=== PATIENT | female | born 1955 | race Caucasian/White ===

== ENCOUNTER 2019-09-20 00:54 | Emergency (ER) | payer MEDICARE, OTHER ==
[~2019-09-20] VITALS: Ht 160 cm; Wt 93.6 kg
--- NOTE | 2019-09-20 01:12 | ED Respiratory ---
General Chief Complaint: Respiratory Problems Stated Complaint: TROUBLE BREATHING Source: patient Exam Limitations: no limitations History of Present Illness Date Seen by Provider: Sep 20, 2019 Time Seen by Provider: 01:07 Initial Comments 64-year-old female presents with a feeling that she's having a hard time catching her breath. Patient reports that the symptoms started about 12:30. Patient states that she was just sitting there when it happened. Patient states that she has similar symptoms about 2 days ago. Patient denies any cough, fever, chills. Patient does report she has a history of anxiety and in the past was on anxiety and depression medication but quit due to side effects. She cannot remember what that medication is name was. She was also given a prescription in the past for hydroxyzine. She states she's had used it one time. She was unsure if this was an anxiety reaction so she has not taken at this time. Patient denies any other systemic complaints. Patient does report some increased stress with her daughter recently being diagnosed with stage III cancer Allergies and Home Medications Allergies Coded Allergies: No Known Drug Allergies (Unverified , 09/20/19) Patient Home Medication List Home Medication List Reviewed: Yes Review of Systems Review of Systems Constitutional: No chills, No fever Respiratory: see HPI; No cough Cardiovascular: No chest pain, No palpitations Gastrointestinal: no symptoms reported Genitourinary: no symptoms reported Musculoskeletal: no symptoms reported Skin: no symptoms reported Psychiatric/Neurological: Anxiety Past Gzconbh-Dxzvqk-Czjmnq Hx Patient Social History Recent Foreign Travel: No Contact w/Someone Who Travel: No Physical Exam Vital Signs - First Documented 09/20/19 01:09 Temp 36.2 Pulse 82 Resp 18 B/P (MAP) 185/98 (127) Pulse Ox 98 O2 Delivery Room Air Capillary Refill : Height: '" Weight: lbs. oz. kg; BMI Method: General Appearance: WD/WN, no apparent distress HEENT: PERRL/EOMI Neck: supple Respiratory: lungs clear, normal breath sounds, no respiratory distress, no accessory muscle use Cardiovascular: normal peripheral pulses, regular rate, rhythm Gastrointestinal: non tender, soft Extremities: normal range of motion, non-tender Neurologic/Psychiatric: ell tutor II-XII nml as tested, no motor/sensory deficits, alert, oriented x 3, other (mildly anxious and stressed) Skin: normal color, warm/dry Progress/Results/Core Measures Suspected Sepsis SIRS Temperature: Pulse: Respiratory Rate: Laboratory Tests 09/20/19 01:20: White Blood Count 9.8 Blood Pressure / Mean: Laboratory Tests 09/20/19 01:20: Creatinine 0.79, Platelet Count 345, Total Bilirubin 0.3 Results/Orders Lab Results Laboratory Tests Test 09/20/19 01:20 Range/Units White Blood Count 9.8 4.3-11.0 10^3/uL Red Blood Count 5.04 4.35-5.85 10^6/uL Hemoglobin 15.2 11.5-16.0 G/DL Hematocrit 44 35-52 % Mean Corpuscular Volume 88 80-99 FL Mean Corpuscular Hemoglobin 30 25-34 PG Mean Corpuscular Hemoglobin Concent 34 32-36 G/DL Red Cell Distribution Width 12.8 10.0-14.5 % Platelet Count 345 130-400 10^3/uL Mean Platelet Volume 11.2 H 7.4-10.4 FL Sodium Level 138 135-145 MMOL/L Potassium Level 3.5 L 3.6-5.0 MMOL/L Chloride Level 101 98-107 MMOL/L Carbon Dioxide Level 24 21-32 MMOL/L Anion Gap 13 5-14 MMOL/L Blood Urea Nitrogen 16 7-18 MG/DL Creatinine 0.79 0.60-1.30 MG/DL Estimat Glomerular Filtration Rate > 60 BUN/Creatinine Ratio 20 Glucose Level 147 H 70-105 MG/DL Calcium Level 9.2 8.5-10.1 MG/DL Corrected Calcium 9.1 8.5-10.1 MG/DL Total Bilirubin 0.3 0.1-1.0 MG/DL Aspartate Amino Transf (AST/SGOT) 15 5-34 U/L Alanine Aminotransferase (ALT/SGPT) 14 0-55 U/L Alkaline Phosphatase 86 40-136 U/L Troponin I < 0.30 <0.30 NG/ML Pro-B-Type Natriuretic Peptide 170.1 H <75.0 PG/ML Total Protein 7.4 6.4-8.2 GM/DL Albumin 4.1 3.2-4.5 GM/DL My Orders Orders - NJ,NICOLE L DO Cbc No Diff (09/20/19 01:13) Comprehensive Metabolic Panel (09/20/19 01:13) Probnp Fs (09/20/19 01:13) Troponin I Fs (09/20/19 01:13) Ekg Tracing (09/20/19 01:13) Monitor-Rhythm Ecg Trace Only (09/20/19 01:13) Chest Pa/Lat (2 View) (09/20/19 01:13) Vital Signs/I&O 09/20/19 01:09 Temp 36.2 Pulse 82 Resp 18 B/P (MAP) 185/98 (127) Pulse Ox 98 O2 Delivery Room Air Capillary Refill : Progress Note : Time: 02:26 Progress Note Patient's EKG labs including troponin were all negative. Patient's exam, and past history are consistent with a stress reaction/anxiety. She has hydroxyzine she can currently take. I did offer her an anti-anxiolytic/antidepressant. She reports again with the side effects that she would prefer to visit with her primary care provider and they can decide on that. After then I recommend she try her hydroxyzine up to 3 times a day as needed for anxiety. She is stable and will be discharged home. ECG Initial ECG Impression Date: Sep 20, 2019 Initial ECG Impression Time: 01:16 Initial ECG Rhythm: Normal Sinus Initial ECG Intervals: Normal Initial ECG Impression: Nonspecific Changes Comment NSR no acute changes, Departure Impression Primary Impression: Acute stress reaction Additional Impression: Anxiety with depression Disposition: 01 HOME, SELF-CARE Condition: Stable Departure-Patient Inst. Referrals: MARNI HATCH MD (PCP/Family) Primary Care Physician Patient Instructions: Anxiety, Adult (DC), Tips to Help You [place] in Uncertain Times, Tips on Positive Thinking, Stress Add. Discharge Instructions: Follow-up with your primary care provider for further medication management All discharge instructions reviewed with patient and/or family. Voiced understanding. NICOLE NJ DO Sep 20, 2019 01:11
[2019-09-20 01:50] LABS: HEMOGLOBIN 15.2 G/DL (11.5-16.0); WHITE BLOOD COUNT 9.8 10^3/uL (4.3-11.0)
[2019-09-20 01:51] LABS: MEAN PLATELET VOLUME 11.2 FL (7.4-10.4); RED CELL DISTRIBUTION WIDTH 12.8 % (10.0-14.5)
--- NOTE | 2019-09-20 02:12 | NUR ---
pt states she is feeling better with anxiety, does not want to wear monitor anymore.
[2019-09-20 02:20] LABS: CARBON DIOXIDE 24 MMOL/L (21-32); CHLORIDE 101 MMOL/L (98-107); POTASSIUM 3.5 MMOL/L (3.6-5.0); SODIUM 138 MMOL/L (135-145)
[2019-09-20 02:21] LABS: ALANINE AMINOTRANSFERASE 14 U/L (0-55); ALBUMIN 4.1 GM/DL (3.2-4.5); ALKALINE PHOSPHATASE 86 U/L (40-136); BILIRUBIN,TOTAL 0.3 MG/DL (0.1-1.0); BUN/CREATININE RATIO 20; CALCIUM 9.2 MG/DL (8.5-10.1); CREATININE SERUM 0.79 MG/DL (0.60-1.30); GFR ESTIMATED > 60; GLUCOSE 147 MG/DL (70-105); TOTAL PROTEIN 7.4 GM/DL (6.4-8.2)
[2019-09-20 02:30] VITALS: BP 168/87
--- NOTE | 2019-09-20 06:32 | Diagnostic Imaging Report ---
Indication: Shortness of breath PA and lateral chest Heart size and pulmonary vascularity are normal. Lungs are clear. There are no effusions or pneumothoraces. IMPRESSION: Negative chest Dictated by: Dictated on workstation # [id number]
== END 2019-09-20 02:30 | disposition home or self-care (01) ==
LOC: EDUNIT# 00:54 → ER FS 00:58
DX: F43.0 Acute stress reaction (principal); F41.8 Other specified anxiety disorders
CPT/HCPCS: 36415; 71046; 80053; 83880; 84484; 85027; 93005; 93041

== ENCOUNTER 2019-10-03 23:54 | Emergency (ER) | payer MEDICARE ==
[~2019-10-03] VITALS: Ht 162 cm; Wt 100.0 kg
[2019-10-04] MEDS: diphenhydrAMINE 50 MG/ML INJ (BENADRYL) IM STA (00:25)
--- NOTE | 2019-10-04 00:25 | ED General ---
General Chief Complaint: General Problems/Pain Stated Complaint: POSS REACTION TO NEW MEDS Nursing Triage Note: Patient states that her PCP recently prescribed her escitalopram and that tonight around 2129 she took her first dose of the medication. She states she felt shakey and cold and that she became nauseated. She is concerned that she may have been allergic to the medication. Nursing Sepsis Screen: No Definite Risk Source of Information: Patient History of Present Illness Date Seen by Provider: Oct 04, 2019 Time Seen by Provider: 00:01 Initial Comments 64-year-old female presenting with complaints of nausea, abdominal cramping, feeling shaky and cold since taking a dose of Lexapro 20 mg. Tonight was her first dose of taking the medicine for anxiety and depression. She occasionally takes hydroxyzine for anxiety as well. She took her first dose of the Lexapro around 26/02/29 and shortly thereafter started having the symptoms. She was concerned that maybe she was allergic to the medicine and came into the emergency department. She felt like her symptoms were may be gradually improving but still felt too shaky to be able to go to sleep. She never vomited but was still a little nauseated. She denies any feeling of throat swelling or difficulty swallowing. Allergies and Home Medications Allergies Coded Allergies: No Known Drug Allergies (Unverified , 09/20/19) Patient Home Medication List Home Medication List Reviewed: Yes Review of Systems Review of Systems Constitutional: No chills, No fever EENTM: no symptoms reported Respiratory: No cough, No short of breath, No stridor, No wheezing Cardiovascular: no symptoms reported Gastrointestinal: see HPI Genitourinary: no symptoms reported Musculoskeletal: see HPI, joint pain (chronic knee pain and is waiting to have knee surgery) Skin: no symptoms reported Psychiatric/Neurological: See HPI, Anxiety Past Qlljwjp-Jkxbmy-Vnpfrf Hx Past Med/Social Hx: Reviewed Nursing Past Med/Soc Hx Patient Social History Alcohol Use: Denies Use Recreational Drug Use: No Smoking Status: Never a Smoker 2nd Hand Smoke Exposure: No Recent Foreign Travel: No Contact w/Someone Who Travel: No Recent Infectious Disease Expo: No Recent Hopitalizations: No Seasonal Allergies Seasonal Allergies: No Past Medical History Surgeries: Yes Orthopedic Respiratory: No Cardiac: Yes Hypertension Neurological: No Genitourinary: No Gastrointestinal: No Musculoskeletal: No Endocrine: No HEENT: No Cancer: No Psychosocial: Yes Anxiety Integumentary: No Blood Disorders: No Physical Exam Vital Signs Vital Signs - First Documented 10/04/19 00:07 Temp 36.8 Pulse 78 Resp 16 B/P (MAP) 174/82 (112) Pulse Ox 94 O2 Delivery Room Air Capillary Refill : Less Than 3 Seconds Height, Weight, BMI Height: '" Weight: lbs. oz. kg; 38.00 BMI Method: General Appearance: WD/WN, Anxious, Mild Distress, Obese HEENT: PERRL/EOMI, Pharynx Normal Neck: Full Range of Motion, Normal Inspection, Supple Respiratory: Chest Non Tender, Lungs Clear, Normal Breath Sounds, No Accessory Muscle Use, No Respiratory Distress Cardiovascular: Regular Rate, Rhythm, Normal Peripheral Pulses Gastrointestinal: Normal Bowel Sounds, No Pulsatile Mass, Non Tender, Soft Extremity: Normal Capillary Refill, No Pedal Edema Neurologic/Psychiatric: Alert, Oriented x3, No Motor/Sensory Deficits, Normal Mood/Affect Skin: Normal Color, Warm/Dry Progress/Results/Core Measures Suspected Sepsis Recent Fever Within 48 Hours: No Infection Criteria Present: None New/Unexplained Altered Menta: No Sepsis Screen: No Definite Risk SIRS Temperature: Pulse: 78 Respiratory Rate: 16 Blood Pressure 174 /82 Mean: 112 Results/Orders My Orders Orders - ARIAN LINDQUIST MD Diphenhydramine Injection (Benadryl Inje (10/04/19 00:19) Vital Signs/I&O 10/04/19 10/04/19 00:07 00:29 Temp 36.8 Pulse 78 78 Resp 16 16 B/P (MAP) 174/82 (112) 174/82 Pulse Ox 94 94 O2 Delivery Room Air Room Air Capillary Refill : Less Than 3 Seconds Blood Pressure Mean: 112 Progress Note : Progress Note counseled patient that she may not be able to tolerate the Lexapro. Will need to check back with Dr. Domingo about that. for tonight I could try a dose of Benadryl to try and help with her symptoms. Not that she is having an allergic reaction but just to try and help mediate some of her shaky feeling and nausea. unfortunately the half-life of Lexapro can be 27-32 hours and came be increased by 50% in the elderly. Departure Impression Primary Impression: Medication side effect Disposition: 01 HOME, SELF-CARE Condition: Stable Departure-Patient Inst. Decision time for Depature: 00:24 Referrals: MARNI DOMINGO MD (PCP/Family) Primary Care Physician Patient Instructions: Adverse Drug Reactions, Adult (DC), Side Effects From Medicines Add. Discharge Instructions: Stop taking the Escitalopram (Lexapro) and check with Dr. Domingo to see what medicine she would recommend you take instead since you do not seem to be able to tolerate this medicine. All discharge instructions reviewed with patient and/or family. Voiced understanding. ARIAN LINDQUIST MD Oct 04, 2019 00:25
[2019-10-04 00:29] VITALS: BP 174/82
== END 2019-10-04 00:32 | disposition home or self-care (01) ==
LOC: EDUNIT# 23:54 → ER FS 23:55
DX: R11.0 Nausea (principal); T43.225A Adverse effect of selective serotonin reuptake inhibitors, initial encounter; F41.9 Anxiety disorder, unspecified; F32.9 Major depressive disorder, single episode, unspecified
CPT/HCPCS: 99284

== ENCOUNTER 2020-09-07 22:56 | Emergency (ER) | payer MEDICARE ==
[~2020-09-07] VITALS: Ht 160 cm; Wt 91.7 kg
[2020-09-07 23:09] VITALS: BP 121/74
[2020-09-07] MEDS ORDERED: diphenhydrAMINE 25 MG TAB (BENADRYL) PO STA (23:49)
[2020-09-07] MEDS ORDERED: methylPREDNISolone 80 MG/ML (DEPO MEDROL) VIAL IM STA (23:49)
--- NOTE | 2020-09-07 23:53 | ED EENT ---
History of Present Illness General Chief Complaint: General Problems/Pain Stated Complaint: COUGH/COLD SYMPTOMS Nursing Triage Note: PT IN PER POV FOR C/O SINUS ALLERGY SYMPTOMS, NASAL CONGESTION , SNEEZING FOR SEVERAL DAYS, DENIES BEING EXPOSED TO COVID, BUT DAUGHTER WAS WANTING HER TESTED. Source: patient History of Present Illness Date Seen by Provider: Sep 07, 2020 Time Seen by Provider: 23:21 Initial Comments 65 yo female presenting with sinus drainage and congestion. She has had some cough and sneezing. She denies any fever, chills, body aches, nausea, vomiting, diarrhea, exposure to Covid, travel. However [id number] insisted that the patient having Covid test prior to coming around her; [facility]. Patient did come to the emergency department to see about having the test done. Her symptoms have been building up over the last several days. She states that this feels similar to the chronic allergy symptoms that she has all the time. Her symptoms were little worse the last couple days because her had been using a carpet deodorizer and spray Timing/Duration: gradual Location: nose Prearrival Treatment: over the counter meds Associated Symptoms: No change in hearing; cough; No drooling, No ear drainage, No facial pain/swelling, No fever, No malaise; nasal congestion/drainage; No poor fluid intake, No poor solids intake, No sinus infection, No sore throat, No tooth pain, No voice change Allergies and Home Medications Allergies Coded Allergies: No Known Drug Allergies (Unverified , 09/20/19) Patient Home Medication List Home Medication List Reviewed: Yes Review of Systems Review of Systems Constitutional: No chills, No fever Eyes: No Symptoms Reported Ears: No Symptoms Reported Nose: congestion; denies epistaxis, denies bloody discharge; clear discharge; denies purulent discharge, denies serosanguinous discharge, denies previous injury Mouth: denies clots, denies pain Throat: no symptoms reported Respiratory: cough; No phlegm, No short of breath, No stridor, No wheezing Cardiovascular: No chest pain Gastrointestinal: no symptoms reported Musculoskeletal: no symptoms reported Skin: No rash Neurological: Headache (Mild sinus pressure) Past Rneghts-Siedll-Magqeu Hx Patient Social History Tobacco Use?: No Smoking Status: Unknown if Ever Smoked Smokeless Tobacco Frequency: Unknown if Ever Used Use of E-Cig and/or Vaping dev: No Substance use?: No Alcohol Use?: Yes Alcohol Frequency: Rarely Pt feels they are or have been: No Seasonal Allergies Seasonal Allergies: No Past Medical History Surgeries: Yes Orthopedic Respiratory: No Cardiac: Yes Hypertension Neurological: No Genitourinary: No Gastrointestinal: No Musculoskeletal: No Endocrine: No HEENT: No Cancer: No Psychosocial: Yes Anxiety Integumentary: No Blood Disorders: No Physical Exam Vital Signs Vital Signs - First Documented 09/07/20 23:09 Temp 36.2 Pulse 100 Resp 18 B/P (MAP) 121/74 (90) Pulse Ox 96 O2 Delivery Room Air Height, Weight, BMI Height: '" Weight: lbs. oz. kg; 35.00 BMI Method: General Appearance: WD/WN, no apparent distress Eyes: bilateral eye PERRL, bilateral eye EOMI Ears: bilateral ear canal normal, bilateral ear TM normal Nose: discharge (Mild clear congestion); No sinus tenderness Mouth/Throat: normal mouth inspection Neck: non-tender, full range of motion, supple, normal inspection Cardiovascular: normal peripheral pulses, regular rate, rhythm Respiratory: chest non-tender, lungs clear, normal breath sounds Neurologic/Psychiatric: alert, oriented x 3 Skin: normal color, warm/dry Progress/Results/Core Measures Results/Orders My Orders Orders - ARIAN LINDQUIST MD Dexamethasone Injection (Decadron Inje (09/07/20 23:49) Methylprednisolone Acetate Inj (Depo-Med (09/07/20 23:49) Diphenhydramine Tablet (Benadryl Tablet) (09/07/20 23:49) Vital Signs/I&O 09/07/20 23:09 Temp 36.2 Pulse 100 Resp 18 B/P (MAP) 121/74 (90) Pulse Ox 96 O2 Delivery Room Air Blood Pressure Mean: 90 Progress Progress Note : Progress Note Discussed with patient option of having Covid testing sent from the ED and waiting 24 to 48 hours for results versus rapid testing through urgent care. Patient stated she would prefer to get the rapid test with urgent care. However since she was already here for the emergency department she was willing to undergo steroid injection and Benadryl to try and help with her congestion and cough. Counseled on follow-up and return precautions. Departure Impression Primary Impression: Nasal sinus congestion Additional Impressions: Cough in adult Seasonal allergies Disposition: 01 HOME, SELF-CARE Condition: Stable Departure-Patient Inst. Decision time for Depature: 23:50 Referrals: MARNI HATCH MD (PCP/Family) Primary Care Physician Patient Instructions: Cough, Adult ED, Seasonal Allergies ED, Cough, Runny Nose, and the Common Cold (DC) Add. Discharge Instructions: Stay well hydrated and get plenty of rest. The steroid shots from tonight will help to dry up congestion and cough. You may also try using anti-histamines such as Diphenhydramine (Benadryl) 25-50 mg every 4 hours or Claritin (Loratidine) or Zyrtec (Cetirizine) which would be more daily medicines or every 12 hours. Check back with clinic for continued concerns If you want the Rapid Covid testing you could go to [facility] and they have that test available and are open after 7 am. All discharge instructions reviewed with patient and/or family. Voiced understanding. ARIAN LINDQUIST MD Sep 07, 2020 23:53
== END 2020-09-08 00:01 | disposition home or self-care (01) ==
LOC: EDUNIT# 22:56 → ER FS 23:01
DX: R09.81 Nasal congestion (principal); R05 Cough; J30.2 Other seasonal allergic rhinitis; I10 Essential (primary) hypertension

== ENCOUNTER → 2020-11-18 | Outpatient (CLI) | payer MEDICARE ==
--- NOTE | 2020-11-18 14:01 | Diagnostic Imaging Report ---
INDICATION: Postmenopausal screening COMPARISON: Baseline FINDINGS: AP Spine L1-L4: [BMD (g/cm2): 1.427] [T-Score: 1.9] [Z-Score: 2.6] [BMD Previous: NA] [BMD % Change: NA] LT Hip Neck: [BMD (g/cm2): 1.095] [T-Score: 0.4] [Z-Score: 1.3] LT Hip Total: [BMD (g/cm2):1.046] [T-Score:0.3] [Z-Score: 0.9] [BMD Previous: NA] [BMD % Change: NA] RT Hip Neck: [BMD (g/cm2):0.934] [T-Score:-0.7] [Z-Score:0.2] RT Hip Total: [BMD (g/cm2):1.062] [T-score:0.4] [Z-Score:1.0] [BMD Previous:NA] [BMD % Change:NA] *Indicates significant change from prior examination based on 95% confidence level. World Health Organization criteria for BMD interpretation classify patients as Normal (T-score at or above -1.0), Osteopenic (T-score between -1.0 and -2.5) or Osteoporotic (T-score at or below -2.5). LIMITATIONS AND MODIFICATION: None. FRACTURE RISK (FRAX SCORE): The ten year probability of (%): Major Osteoporotic Fracture: [NA] Hip Fracture: [NA] IMPRESSION: 1. Normal bone mineral density. 2. Baseline examination. 3. See below National Osteoporosis Foundation guidelines on when to potentially initiate pharmacologic therapy. Based on the National Osteoporosis Foundation Guidelines, pharmacologic treatment should be initiated in any of the following, unless clinical conditions suggest otherwise: * Any patient with prior fragility fracture of the hip or vertebrae. A spine fracture indicates 5X risk for subsequent spine fracture and 2X risk for subsequent hip fracture. * Osteoporosis (T-score <-2.5). * Postmenopausal women and men age 50 and older with low bone mass/osteopenia (T-score between -1.0 and -2.5) by DXA and 10-year major osteoporotic fracture greater than 20% or a 10-year probability of hip fracture greater than 3%. These fracture risks are supplied above in the FRAX score, if applicable. * Clinician judgement and/or patient preferences may indicate treatment for people with 10-year fracture probabilities above or below these levels. Dictated by: Dictated on workstation # [id number]
== END ==
LOC: RAD 11:00
PROVIDERS: ATTEND Family Medicine
DX: Z78.0 Asymptomatic menopausal state (principal)
CPT/HCPCS: 77080

== ENCOUNTER 2021-02-24 05:35 | Outpatient (CLI) | payer MEDICARE ==
[~2021-02-24] VITALS: Ht 160 cm; Wt 91.0 kg
[2021-02-24] MEDS ORDERED: ASPI-999 PO (10:13)
[2021-02-24] MEDS ORDERED: HYDR-3781 PO (10:13)
[2021-02-24] MEDS ORDERED: LISI1TAB44 PO (10:13)
== END 2021-02-24 10:22 | disposition home or self-care (01) ==
LOC: PREOP 05:35
PROVIDERS: ATTEND Specialist
DX: Z01.818 Encounter for other preprocedural examination (principal)

== ENCOUNTER 2021-04-03 05:43 | Outpatient (CLI) | payer MEDICARE ==
[~2021-04-03] VITALS: Ht 160 cm; Wt 91.0 kg
[~2021-04-03 05:43] MED LIST: ASPI-999 PO; HYDR-3781 PO; LISI1TAB44 PO
== END 2021-04-21 17:34 ==
LOC: PREOP 05:43
PROVIDERS: ATTEND Specialist
DX: Z01.818 Encounter for other preprocedural examination (principal)

== ENCOUNTER 2021-04-10 10:19 | Day surgery (SDC) | payer MEDICARE ==
[~2021-04-10] VITALS: Ht 160 cm; Wt 91.0 kg
[2021-04-10] MEDS ORDERED: acetaZOLAMIDE ER 500 MG CAP (DIAMOX SEQUELS) PO ONE (10:45)
[2021-04-10] MEDS ORDERED: TIMOLOL MALEATE 0.5% 5 ML (TIMOPTIC) BTL OU PRN (10:45)
[2021-04-10] MEDS ORDERED: LIDOCAINE PF 1% 2 ML VIAL IR PRN (10:45)
[2021-04-10] MEDS ORDERED: MOXIFLOXACIN OPHTH SOLN 5 MG/ML 0.3 ML SYRINGE OP ONE (10:45)
[2021-04-10] MEDS ORDERED: POVIDONE (BETADINE) OPHTH SOLN 5% 30 ML OP ONE (10:45)
[2021-04-10] MEDS: TETRACAINE 0.5% OPHTH SOLN 4 ML BTL (SINGLE DOSE ONLY) OU PRN ×4 (10:48→11:07)
[2021-04-10] MEDS: TROPICAMIDE 1% OPH SOLN (MYDRIACYL) 15 ML BTL OP SCH ×3 (10:55→11:07)
[2021-04-10] MEDS: PHENYLEPHRINE 10% OPHTH (NEO-SYN) 5 ML BTL OU SCH ×3 (10:55→11:07)
[2021-04-10 11:10] VITALS: BP 122/77
--- NOTE | 2021-04-10 11:30 | Ophthalmologist Pre-Op Note ---
Pre-Operative Progress Note H&P Reviewed The H&P was reviewed, patient examined and no changes noted. Date H&P Reviewed: Apr 10, 2021 Time H&P Reviewed: 11:30 Pre-Op Dx Cataract, Right Eye KENDALL MARCOS MD Apr 10, 2021 11:30
--- NOTE | 2021-04-10 11:50 | Ophthalmology Operative Report ---
Cataract removal/placement IOL PREOPERATIVE DIAGNOSIS: Cataract Right Eye POSTOPERATIVE DIAGNOSIS: Cataract Right Eye PROCEDURE: Cataract removal and placement of posterior chamber implant, right eye SURGEON: Williams Marcos ANESTHESIA: Topical with sedation COMPLICATIONS: None ESTIMATED BLOOD LOSS: Minimal DESCRIPTION OF PROCEDURE: After proper informed consent was obtained, the patient, a 65 female, was taken to the Operating Room and the right eye was anesthetized with tetracaine. The right eye was then prepped and draped in the usual manner. A wire lid speculum was placed. A paracentesis was made at the left hand position. Preservative free lidocaine was injected into the anterior chamber followed by viscoelastic. A clear corneal incision was made in the temporal position. A capsulorrhexis was preformed and the central nuclear and cortical material were removed. The posterior capsule was polished and Abdelrahman 20.0 AU00T0 IOL was placed into the capsular bag. The residual viscoelastic was aspirated and balanced saline solution was injected into the anterior chamber. Moxifloxacin was injected into the anterior chamber. The wound was checked and found to be water tight. The patient tolerated the procedure well without complications. WILLIAMS MARCOS MD Apr 10, 2021 11:50
[2021-04-10 11:54] VITALS: BP 127/73
--- NOTE | 2021-04-10 12:34 | Anesthesia-General Post-Op ---
MAC Patient Condition Mental Status/LOC: Same as Preop Cardiovascular: Satisfactory Nausea/Vomiting: Absent Respiratory: Satisfactory Pain: Controlled Complications: Absent Post Op Complications Complications None Follow Up Care/Instructions Patient Instructions None needed. Anesthesiology Discharge Order Discharge Order Patient is doing well, no complaints, stable vital signs, no apparent adverse anesthesia problems. No complications reported per nursing. CARLOS WADE CRNA Apr 10, 2021 12:34
== END 2021-04-10 11:56 | disposition home or self-care (01) ==
LOC: SDC 10:19
PROVIDERS: ATTEND Specialist
DX: H25.9 Unspecified age-related cataract (principal); E66.9 Obesity, unspecified; Z68.35 Body mass index [BMI] 35.0-35.9, adult
CPT/HCPCS: 66984; V2632

== ENCOUNTER 2021-04-24 06:59 | Day surgery (SDC) | payer MEDICARE ==
[~2021-04-24] VITALS: Ht 160 cm; Wt 91.0 kg
[2021-04-24] MEDS: TETRACAINE 0.5% OPHTH SOLN 4 ML BTL (SINGLE DOSE ONLY) OU PRN ×4 (07:13→07:53)
[2021-04-24] MEDS ORDERED: MOXIFLOXACIN OPHTH SOLN 5 MG/ML 0.3 ML SYRINGE OP ONE (07:15)
[2021-04-24] MEDS ORDERED: POVIDONE (BETADINE) OPHTH SOLN 5% 30 ML OP ONE (07:15)
[2021-04-24] MEDS ORDERED: LIDOCAINE PF 1% 2 ML VIAL IR PRN (07:15)
[2021-04-24] MEDS ORDERED: TIMOLOL MALEATE 0.5% 5 ML (TIMOPTIC) BTL OU PRN (07:15)
[2021-04-24 07:16] VITALS: BP 148/71
[2021-04-24] MEDS: PHENYLEPHRINE 10% OPHTH (NEO-SYN) 5 ML BTL OU SCH ×3 (07:30→07:53)
[2021-04-24] MEDS: TROPICAMIDE 1% OPH SOLN (MYDRIACYL) 15 ML BTL OP SCH ×3 (07:31→07:53)
[2021-04-24] MEDS ORDERED: MIDAZOLAM 2 MG/2 ML (VERSED) VIAL ONE ×2 (08:04→08:33)
--- NOTE | 2021-04-24 08:23 | Ophthalmologist Pre-Op Note ---
Pre-Operative Progress Note H&P Reviewed The H&P was reviewed, patient examined and no changes noted. Date H&P Reviewed: Apr 24, 2021 Time H&P Reviewed: 08:23 Pre-Op Dx Cataract, Left Eye KENDALL MARCOS MD Apr 24, 2021 08:23
[2021-04-24] MEDS ORDERED: acetaZOLAMIDE ER 500 MG CAP (DIAMOX SEQUELS) PO ONE (08:30)
--- NOTE | 2021-04-24 08:48 | Ophthalmology Operative Report ---
Cataract removal/placement IOL PREOPERATIVE DIAGNOSIS: Cataract Left Eye POSTOPERATIVE DIAGNOSIS: Cataract Left Eye PROCEDURE: Cataract removal and placement of posterior chamber implant, left eye SURGEON: Williams Marcos ANESTHESIA: Topical with sedation COMPLICATIONS: None ESTIMATED BLOOD LOSS: Minimal DESCRIPTION OF PROCEDURE: After proper informed consent was obtained, the patient, a 65 female, was taken to the Operating Room and the left eye was anesthetized with tetracaine. The left eye was then prepped and draped in the usual manner. A wire lid speculum was placed. A paracentesis was made at the left hand position. Preservative free lidocaine was injected into the anterior chamber followed by viscoelastic. A clear corneal incision was made in the temporal position. A capsulorrhexis was preformed and the central nuclear and cortical material were removed. The posterior capsule was polished and an Abdelrahman 20.0 AU00T0 was placed into the capsular bag. The residual viscoelastic was aspirated and balanced saline solution was injected into the anterior chamber. Moxifloxacin was injected into the anterior chamber. The wound was checked and found to be water tight. The patient tolerated the procedure well without complications. WILLIAMS MARCOS MD Apr 24, 2021 08:48
[2021-04-24 08:55] VITALS: BP 138/79
--- NOTE | 2021-04-24 12:49 | Anesthesia-General Post-Op ---
MAC Patient Condition Mental Status/LOC: Same as Preop Cardiovascular: Satisfactory Nausea/Vomiting: Absent Respiratory: Satisfactory Pain: Controlled Complications: Absent Post Op Complications Complications None Follow Up Care/Instructions Patient Instructions None needed. Anesthesiology Discharge Order Discharge Order Patient is doing well, no complaints, stable vital signs, no apparent adverse anesthesia problems. No complications reported per nursing. CARLOS WADE CRNA Apr 24, 2021 12:49
== END 2021-04-24 08:57 | disposition home or self-care (01) ==
LOC: SDC 06:59
PROVIDERS: ATTEND Specialist
DX: H25.9 Unspecified age-related cataract (principal)
CPT/HCPCS: 66984; V2632